=== PATIENT | female | born 1985 | race Caucasian/White ===

== ENCOUNTER 2017-09-19 22:26 | Emergency (ER) | payer MEDICAID ==
[2017-09-19 22:37] VITALS: BP 138/84; PULSE 74; RESP 20; TEMP 98; O2SAT 98
[2017-09-19] MEDS ORDERED: Sodium Chloride 0.9% 1,000 ML IV ONE (22:59)
--- NOTE | 2017-09-19 23:11 | C.PDOC ---
History Of Present Illness 31 y/o female is brought to ER by her friend for complaints of leg and back pain that began 3 days ago. Patient claims she has sickle cell disease. Patient also reports that she called her PMD [facility] 2 days ago and made an appointment for Friday. Patient has oxycodone 30mg tabs for severe pain and percocet. Patient states she has 2 other children in sickle cell crisis today and she spent most of the day at [facility] ER department and was not evaluated there for unclear reasons. Time Seen by Provider: 09/19/17 22:43 Chief Complaint (Nursing): Back Pain History Per: Patient History/Exam Limitations: no limitations Onset/Duration Of Symptoms: Hrs Current Symptoms Are (Timing): Still Present Recent travel outside of the [place]: No Past Medical History Reviewed: Historical Data, Nursing Documentation, Vital Signs Vital Signs: Last Vital Signs Temp 98 F 09/19/17 22:33 Pulse 74 09/19/17 22:33 Resp 20 09/19/17 22:33 BP 138/84 09/19/17 22:33 Pulse Ox 98 09/19/17 23:12 - Medical History PMH: Pancreatitis, End Stage Renal Disease, Sickle Cell Disease Surgical History: No Surg Hx Family History: States: No Known Family Hx - Social History Hx Alcohol Use: No Hx Substance Use: No - Immunization History Hx Tetanus Toxoid Vaccination: No Hx Influenza Vaccination: No Hx Pneumococcal Vaccination: No Review Of Systems Constitutional: Negative for: Fever, Chills Gastrointestinal: Negative for: Nausea, Vomiting, Abdominal Pain, Diarrhea Musculoskeletal: Positive for: Back Pain, Leg Pain Skin: Negative for: Rash Neurological: Negative for: Weakness, Numbness Psych: Negative for: Suicidal ideation Physical Exam - Physical Exam Appears: Well, Non-toxic, No Acute Distress, Other (confabulatory; tangential) Skin: Normal Color, Warm, Dry Head: Atraumatic, Normacephalic Eye(s): bilateral: Other (Pinpoin pupils; ) Oral Mucosa: Moist Throat: Normal, No Erythema, No Exudate Neck: Supple Chest: Symmetrical, No Tenderness Cardiovascular: Rhythm Regular Respiratory: No Decreased Breath Sounds, No Rales, No Rhonchi, No Wheezing Gastrointestinal/Abdominal: Soft, No Tenderness, No Distention Back: No CVA Tenderness, No Vertebral Tenderness, No Paraspinal Tenderness Extremity: Normal ROM, No Tenderness, No Pedal Edema, No Deformity, No Swelling Extremity: Bilateral: Normal Color And Temperature, Normal ROM Neurological/Psych: Oriented x3, Normal Speech, Normal Cognition Gait: Steady ED Course And Treatment O2 Sat by Pulse Oximetry: 98 (RA) Pulse Ox Interpretation: Normal Medical Decision Making Medical Decision Making: convoluted story about Sickle Cell Crisis x 3 days, made appt with Ricardo Alvarez for Friday (5 days later) Pt was @ [facility] all day today (>6 hours) with another sick child (one of her 5 kids) with Sickle Cell Crisis also, but cannot explain why she did not get evaluated there at the same time. Pt with pinpoint pupils and Oxy 30mg and Percocet @ home in sufficient quantities. Pt given a copy and explained our present ED Sickle Cell Crisis pain medication protocol and < 5 mins later decided to elope and go to "another hospital." Pt in NAD, her story is convoluted and seems confabulatory, and as pt declined ED tx and eval/adm by per PMD we may consider drug-seeking behavior. Why pt cannot walk and is carried about by her friend is of ? etiology/ significance. Pt never mentioned if/how/why she is unable to walk on her own. As today is pt's first visit to our ED (just moved to the area 3 days ago, as relocated by local law enforcement) there are no prior evals to review. Ordered EKG, blood work, CXR, Oxygen therapy, and urinalysis. Administered Dilaudid, Motrin and IV fluids. Disposition - Disposition Disposition: ELOPEMENT - ER ONLY Disposition Time: 23:12 Condition: GOOD Forms: [facility] (Romansh) - Clinical Impression Clinical Impression: Drug-seeking behavior - Scribe Statement The provider has reviewed the documentation as recorded by the Scribe Darrell Munoz All medical record entries made by the Scribe were at my direction and personally dictated by me. I have reviewed the chart and agree that the record accurately reflects my personal performance of the history, physical exam, medical decision making, and the department course for this patient. I have also personally directed, reviewed, and agree with the discharge instructions and disposition.
[2017-09-19 23:14] LABS: SQUAMOUS EPITHIAL 11 /hpf (0-5); URINE BACTERIA RARE (<OCC); URINE BILIRUBIN 1+ (NEGATIVE); URINE BLOOD NEGATIVE (NEGATIVE); URINE CLARITY Hazy (Clear); URINE COLOR Amber (YELLOW); URINE GLUCOSE (UA) NORMAL (Normal); URINE LEUKOCYTE ESTERASE TRACE Leu/uL (Negative); URINE PROTEIN 1+ mg/dL (NEGATIVE)
[2017-09-19 23:15] LABS: HCG,QUALITATIVE URINE NEGATIVE (NEGATIVE)
[2017-09-19 23:23] LABS: BARBITURATES, UR NEGATIVE (NEGATIVE); BENZODIAZEPINES, UR POSITIVE (NEGATIVE); OPIATES, UR POSITIVE (NEGATIVE); PHENCYCLIDINE, UR NEGATIVE (NEGATIVE)
== END 2017-09-19 23:20 | disposition left against medical advice (07) ==
LOC: MERGE 22:26 → C.ER 22:26
DX: Z76.5 Malingerer [conscious simulation] (principal)